=== PATIENT | male | born 1985 | race Caucasian/White ===

== ENCOUNTER → 2017-08-07 | Emergency (ER) | payer OTHER ==
[~2017-08-07] VITALS: Ht 190.5 cm; Wt 90.7 kg
== END | disposition left against medical advice (07) ==
LOC: ER 22:03
DX: S00.33XA Contusion of nose, initial encounter (principal); W22.8XXA Striking against or struck by other objects, initial encounter; Y93.89 Activity, other specified; Y92.89 Other specified places as the place of occurrence of the external cause; Y99.8 Other external cause status